=== PATIENT | female | born 1995 | race Two or more races ===

== ENCOUNTER 2020-02-03 05:19 | Day surgery (SDC) | payer OTHER ==
[~2020-02-03] VITALS: Ht 157.5 cm; Wt 49.9 kg
[2020-02-03] VITALS (12 sets, daily range): BP systolic 102–123; BP diastolic 54–72
[~2020-02-03 05:19] MED LIST: ERRIN PO; KETAMINE HCL SL; MELOXICAM15 MG PO; SPIRONOLACTONE100 MG ORAL; VIIBRYD1 EAC2 PO
[2020-02-03 06:13] LABS: BASOPHILS % (AUTO) 1.3 % (0.0-2.0); EOSINOPHILS % (AUTO) 0.8 % (0.0-3.0); HEMATOCRIT 38.3 % (37.0-47.0); HEMOGLOBIN 12.9 G/DL (12.0-16.0); LYMPHOCYTES % (AUTO) 26.8 % (20.0-45.0); MEAN CORPUSCULAR VOLUME 89 FL (80-99); NEUTROPHILS % (AUTO) 65.2 % (45.0-75.0); PLATELET COUNT 258 K/UL (150-450); RED BLOOD COUNT 4.29 M/UL (4.20-5.40); RED CELL DISTRIBUTION WIDTH 10.6 % (11.6-14.8); WHITE BLOOD COUNT 9.9 K/UL (4.8-10.8)
[2020-02-03 06:18] LABS: ANION GAP 14 mmol/L (5-15); BLOOD UREA NITROGEN 16 mg/dL (7-18); CALCIUM 8.8 MG/DL (8.5-10.1); CARBON DIOXIDE 24 MMOL/L (21-32); CHLORIDE 103 MMOL/L (98-107); CREATININE 0.7 MG/DL (0.55-1.30); POTASSIUM 3.8 MMOL/L (3.5-5.1); SODIUM 141 MMOL/L (136-145)
[2020-02-03] MEDS ORDERED: TransDerm Scop 1.5mg/72HR Patch TDERMAL ONE ×2 (06:57→08:15)
[2020-02-03] MEDS ORDERED: Clindamycin 600mg 50 ML IV ONE ×2 (06:58→08:15)
[2020-02-03] MEDS ORDERED: Rocuronium Bromide 100mg/10ml Inj IV ONE (06:58)
[2020-02-03] MEDS ORDERED: Succinylcholine 20mg/ml 10ml vial ONE (06:58)
[2020-02-03] MEDS ORDERED: Midazolam 2mg/2ml Inj ONE (07:06)
[2020-02-03] MEDS ORDERED: Lidocaine 1% MPF 10mg/ml 5ml ONE (07:06)
[2020-02-03] MEDS ORDERED: fentaNYL 100 mcg/2 mL IV ONE (07:06)
[2020-02-03] MEDS ORDERED: Ropivacaine 5mg/ml Vial 20ml INJ ONE (07:30)
[2020-02-03] MEDS ORDERED: NS Irrig 1000ml ONE (07:30)
[2020-02-03] MEDS ORDERED: LR 1000ml ONE (07:30)
[2020-02-03] MEDS ORDERED: Neostigmine 1mg/ml 10ml Inj ONE (07:30)
[2020-02-03] MEDS ORDERED: Sterile Water Irrig 1000ml IRRIG ONE (07:30)
--- NOTE | 2020-02-03 07:36 | Anethesia Preoperative Eval ---
Anesthesia Pre-op PMH/ROS General Date of Evaluation: Feb 03, 2020 Time of Evaluation: 07:34 Anesthesiologist: Martin ASA Score: ASA 2 Mallampati Score Class I : Soft palate, uvula, fauces, pillars visible Class II: Soft palate, uvula, fauces visible Class III: Soft palate, base of uvula visible Class IV: Only hard plate visible Mallampati Classification: Class II Surgeon: Diego Diagnosis: Pelvic pain Surgical Procedure: Laparoscopic ovarian cystectomy Anesthesia History: PONV Family History: no anesthesia problems Allergies: Coded Allergies: PENICILLINS (Verified Allergy, Severe, hives, 01/29/20) TRAMADOL (Verified Allergy, Intermediate, rash, 01/29/20) LATEX, NATURAL RUBBER (Verified Adverse Reaction, Mild, itching, 01/29/20) Medications: see eMAR Patient NPO?: Yes Past Medical History Cardiovascular: Denies: HTN, CAD, [place], valve dz, arrhythmia, other Pulmonary: Reports: asthma - mild Gastrointestinal/Genitourinary: Reports: GERD - mild; Denies: CRI, ESRD, other Neurologic/Psychiatric: Reports: depression/anxiety, other - chrnic kirill; Denies: dementia, CVA, TIA Endocrine: Denies: DM, hypothyroidism, steroids, other HEENT: Denies: cataract (L), cataract (R), glaucoma, SLEETMUTE (L), SLEETMUTE (R), other Hematology/Immune: Denies: anemia, DVT, bleeding disorder, other Musculoskeletal/Integumentary: Denies: OA, RA, DJD, DDD, edema, other PMH Narrative: as above PSxH Narrative: dental Sx Anesthesia Pre-op Phys. Exam Physician Exam Last Vital Signs Date Time Temp Pulse Resp B/P (MAP) Pulse Ox O2 Delivery O2 Flow Rate FiO2 02/03/20 06:01 97.7 73 18 112/72 99 Room Air Constitutional: NAD Neurologic: CN 2-12 intact Cardiovascular: RRR, no M/R/G Respiratory: CTA Gastrointestinal: S/NT/ND Airway Exam Mallampati Score: Class II MO: full Neck: flexible ROM: full Teeth: intact Dentures: no upper, no lower Anesthesia Pre-op A/P Labs Hematology Test 02/03/20 05:45 White Blood Count 9.9 K/UL (4.8-10.8) Red Blood Count 4.29 M/UL (4.20-5.40) Hemoglobin 12.9 G/DL (12.0-16.0) Hematocrit 38.3 % (37.0-47.0) Mean Corpuscular Volume 89 FL (80-99) Mean Corpuscular Hemoglobin 30.1 PG (27.0-31.0) Mean Corpuscular Hemoglobin Concent 33.7 G/DL (32.0-36.0) Red Cell Distribution Width 10.6 % (11.6-14.8) L Platelet Count 258 K/UL (150-450) Mean Platelet Volume 6.4 FL (6.5-10.1) L Neutrophils (%) (Auto) 65.2 % (45.0-75.0) Lymphocytes (%) (Auto) 26.8 % (20.0-45.0) Monocytes (%) (Auto) 6.0 % (1.0-10.0) Eosinophils (%) (Auto) 0.8 % (0.0-3.0) Basophils (%) (Auto) 1.3 % (0.0-2.0) Coagulation Test 02/03/20 05:45 Prothrombin Time 11.5 SEC (9.30-11.50) Prothromb Time International Ratio 1.0 (0.9-1.1) Activated Partial Thromboplast Time 26 SEC (23-33) Chemistry Test 02/03/20 05:45 Sodium Level 141 MMOL/L (136-145) Potassium Level 3.8 MMOL/L (3.5-5.1) Chloride Level 103 MMOL/L (98-107) Carbon Dioxide Level 24 MMOL/L (21-32) Anion Gap 14 mmol/L (5-15) Blood Urea Nitrogen 16 mg/dL (7-18) Creatinine 0.7 MG/DL (0.55-1.30) Estimat Glomerular Filtration Rate > 60 mL/min (>60) Glucose Level 90 MG/DL (74-106) Calcium Level 8.8 MG/DL (8.5-10.1) Urine Test Test 02/03/20 05:45 Urine HCG, Qualitative Negative (NEGATIVE) Risk Assessment & Plan Assessment: ASA 2 Plan: GA with ETT, PONV prevention Status Change Before Surgery: No Pre-Antibiotics Drug: Clinamycin 600mg Given Within 1 Hr of Incision: Yes Time Given: 08:10 Nate Salazar MD Feb 03, 2020 07:36
--- NOTE | 2020-02-03 07:40 | Pre-Procedure Note/Attestation ---
Pre-Procedure Note/Attestation Complete Prior to Procedure Planned Procedure: left Procedure Narrative: Hysteroscopy, dilation and curettage, laparoscopic left ovarian cystectomy, possible fulguration of endometriosis Indications for Procedure Pre-Operative Diagnosis: Pelvic pain, left ovarian cyst Attestation I attest that I discussed the nature of the procedure; its benefits; risks and complications; and alternatives (and the risks and benefits of such alternatives ), prior to the procedure, with the patient (or the patient's legal route sales representative). I attest that, if there was a reasonable possibility of needing a blood transfusion, the patient (or the patient's legal route sales representative) was given the [place] [employer] standardized written summary, pursuant to the [place] Anh Blood Safety Act ([place] Health and Safety Code # 1645, as amended). I attest that I re-evaluated the patient just prior to the surgery and that there has been no change in the patient's H&P, except as documented below: None Kathryn Schultz M.D. Feb 03, 2020 07:40
[2020-02-03] MEDS ORDERED: ProvayBlue 5mg/ml 10ml amp INJ ONE (07:45)
[2020-02-03] MEDS ORDERED: NS Irrig 2000ml IRRIG ONE ×2 (07:50→08:59)
[2020-02-03] MEDS ORDERED: LR 1000ml 1,000 ML IVLG SCH (08:16)
[2020-02-03] MEDS ORDERED: Ketorolac 30mg Inj IV PRN (08:30)
[2020-02-03] MEDS ORDERED: DiphenhydrAMINE 50mg/ml Inj IVP PRN (08:30)
[2020-02-03] MEDS ORDERED: Metoclopramide 10mg/2ml Inj IVP PRN ×3 (08:30→10:00)
[2020-02-03] MEDS ORDERED: Morphine Sulfate 10mg/ml Inj ONE (08:39)
[2020-02-03] MEDS ORDERED: Sodium Chloride 10ml vial INJ ONE (08:40)
[2020-02-03] MEDS ORDERED: Glycopyrrolate 0.2mg/ml 1ml Vial ONE (08:40)
[2020-02-03] MEDS ORDERED: Ketorolac 30mg Inj ONE (08:41)
--- NOTE | 2020-02-03 09:38 | Brief Operative Note ---
Immediate Post Operative Note Operative Note Chief Complaint: Pelvic pain, left ovarian cyst Pre-op Diagnosis: Pelvic pain, left ovarian cyst Procedure: Hysteroscopy, dilation and curettage, laparoscopic drainage of left ovarian cyst , fulguration of endometriosis Post-op Diagnosis: Endometriosis, left ovarian follicular cyst Post-op Diagnosis: same as pre-op plus - Endometriosis Surgeon: Kathryn Schultz MD Weaving Supervisor: Zachary Rodas MD Anesthesiologist: Dr. Torre Anesthesia: general Specimen: yes - Endometrial curettings Complications: none Condition: stable Fluids: Crystalloid 1200cc Estimated Blood Loss: minimal Drains: none - UOP 300cc at end of procedure Implant(s) used?: No Kathryn Schultz M.D. Feb 03, 2020 09:38
--- NOTE | 2020-02-03 09:42 | Operative Note - PDOC ---
Operative Note Operative Note Date of Operation/Procedure: Feb 03, 2020 Chief Complaint: Pelvic pain, left ovarian cyst Pre-op Diagnosis: Pelvic pain, left ovarian cyst Procedure: Hysteroscopy, dilation and curettage, laparoscopic drainage of left ovarian cyst , fulguration of endometriosis Post-op Diagnosis: Endometriosis, left ovarian follicular cyst Post-op Diagnosis: same as pre-op plus - Endometriosis Operative Findings: consistent w/pre-op dx studies Surgeon: Kathryn Schultz MD Nut Tapper: Zachary Rodas MD Anesthesiologist: Dr. Torre Anesthesia: general Specimen: yes - Endometrial curettings Complications: none Condition: stable Fluids: Crystalloid 1200cc Estimated Blood Loss: minimal Drains: none - UOP 300cc at end of procedure Implant(s) used?: No Indications for Procedure Description of Procedure The R/B/A of the procedure were discussed with the patient, and informed consent was obtained. The patient was taken to the operating room with IV in place. SCDs were placed. General anesthesia was administered without difficulty and deemed adequate. The patient was prepped and draped in the usual sterile fashion. Urinary catheter was placed. A time out was performed to verify patient and procedure. Weighted speculum was inserted in the vagina and the anterior wall of the vagina was retracted. The cervix was visualized. The anterior lip of the cervix was grasped with a single toothed tenaculum. The cervix was sequentially dilated to accommodate the diagnostic hysteroscope. Hysteroscope was introduced and all curtis appeared normal. Bilateral ostia were visualized and appeared normal. The hysteroscope was withdrawn and fractional curettage was performed. A uterine manipulator was inserted, stabilized, and all instruments were removed from the vagina. Attention was turned to the abdomen. A 5mm vertical intraumbilical incision was made after infiltration of local anesthetic. The Veress needle was inserted into the abdomen and CO2 low pressure insufflation was initiated with initial pressure noted to be 3mmHg. The abdomen was insufflated with CO2 gas to a pressure of 15 mmHg. The Veress was withdrawn and a 5mm trochar was inserted under direct visualization with Visiport. The abdomen was thoroughly inspected and no harm due to the procedure done was noted. Liver edge appeared normal. A left ovarian follicular cyst measuring approximately 2-3cm was visualized. Two 5mm accessory ports were inserted in the bilateral lower quadrants under direct visualization after infiltration of local anesthetic. The pelvic peritoneum was inspected thoroughly and multiple areas of endometriosis were noted. Endometriosis implants were seen on the bilateral pelvic sidewalls, bladder peritoneum, bilaterally in the areas inferior to the ovaries, on the right overlying the ureter near the infundibulopelvic ligament, and on the left uterosacral. Each of the areas was individually fulgurated with the use of either monopolar or bipolar cautery, with great care being taken to avoid harming underlying and surrounding structures. Hemostasis was noted and no harm due to the procedure done was noted. The left ovarian cyst was incised and drained. Clear fluid was noted, consistent with follicular cyst. The abdomen was copiously irrigated and excellent hemostasis was noted. The ports were removed under direct visualization after allowing the CO2 gas to escape. The skin incisions were closed with 4-0 Monocryl in a subcuticular fashion. Incisions were covered with mastisol, steri-strips, and 2x2 gauze with Tegaderm. Attention was turned back to the pelvis. The uterine manipulator was removed and the echeverria catheter in the bladder was also removed. The patient was awakened from anesthesia without difficulty and transferred to PACU in stable condition. Plan for d/c home from PACU once patient has met all post-op discharge requirements. Kathryn Schultz M.D. Feb 03, 2020 09:41
[2020-02-03] MEDS ORDERED: Hydromorphone 0.5mg/0.5ml inj SUBQ PRN (09:45)
[2020-02-03] MEDS ORDERED: HYDROcodone/Acetamin 10/325 tab ORAL PRN (09:45)
[2020-02-03] MEDS ORDERED: HYDROcodone/Acetamin 5/325 tab ORAL PRN (09:45)
--- NOTE | 2020-02-03 09:53 | Immediate Post-Op Evaluation ---
Immediate Post-Op Evalulation Immediate Post-Op Evalulation Procedure: D&C Hysteroscopy, Laparoscopuic cystectomy, endometriosis treatment Date of Evaluation: Feb 03, 2020 Time of Evaluation: 09:52 IV Fluids: 1300 Blood Products: none Estimated Blood Loss: min Urinary Output: 300 Blood Pressure Systolic: 116 Blood Pressure Diastolic: 74 Pulse Rate: 78 Respiratory Rate: 20 O2 Sat by Pulse Oximetry: 98 Temperature (Fahrenheit): 97.6 Pain Score (1-10): 1 Nausea: No Vomiting: No Complications none Patient Status: reacts, patent, extubated, none Hydration Status: adequate Nate Salazar MD Feb 03, 2020 09:53
[2020-02-03] MEDS: Meperidine 25mg/0.5ml Inj (FOR RIGORS ONLY) IV PRN ×2 (09:54→10:30)
--- NOTE | 2020-02-03 11:42 | 48 Hour Post Anesthesia Eval ---
Post Anesthesia Evaluation Procedure: D&C Hysteroscopy, Laparoscopuic cystectomy, endometriosis treatment Date of Evaluation: Feb 03, 2020 Time of Evaluation: 11:41 Blood Pressure Systolic: 124 0: 56 Pulse Rate: 74 Respiratory Rate: 18 Temperature (Fahrenheit): 97.6 O2 Sat by Pulse Oximetry: 99 Airway: patent Nausea: No Vomiting: No Pain Intensity: 2 Hydration Status: adequate Cardiopulmonary Status: stable Mental Status/LOC: patient returned to baseline Follow-up Care/Observations: n/a Post-Anesthesia Complications: none Follow-up care needed: ready to discharge Nate Salazar MD Feb 03, 2020 11:42
[2020-02-03] MEDS ORDERED: D5 1/2NS 1,000 ML IV SCH (14:00)
== END 2020-02-03 11:50 | disposition home or self-care (01) ==
LOC: SUR 05:19
DX: N83.02 Follicular cyst of left ovary (principal); N80.3 Endometriosis of pelvic peritoneum; R10.2 Pelvic and perineal pain; K21.9 Gastro-esophageal reflux disease without esophagitis; Z91.040 Latex allergy status; Z88.6 Allergy status to analgesic agent; Z88.0 Allergy status to penicillin
CPT/HCPCS: 36415; 49322; 58558; 58662; 80048; 81025; 85025; 85610; 85730; 94003; J0330; J1885; J2250; J2270; J2405; J2704; J2710; J2795; J3010; J7120; 94150; J2180; S0077